=== PATIENT | female | born 1970 | race Caucasian/White ===

== ENCOUNTER → 2017-01-28 | Outpatient (CLI) | payer OTHER ==
--- NOTE | 2017-01-28 15:22 | RADIOLOGY REPORT (SQ) ---
EXAM DESCRIPTION: KNEE RIGHT 4 VIEWS COMPLETED DATE/TIME: 01/28/2017 3:09 pm REASON FOR STUDY: PAIN IN RIGHT KNEE M25.561 PAIN IN RIGHT KNEE COMPARISON: None. NUMBER OF VIEWS: Four views. TECHNIQUE: AP, lateral, and both oblique radiographic images acquired of the right knee. LIMITATIONS: None. FINDINGS: MINERALIZATION: Normal. BONES: No acute fracture or dislocation. No worrisome bone lesions. Mild osteophytic lipping is ident ified at the level of the medial compartment. There is minimal osteophytic lipping at the level of t he lateral compartment. JOINT: There is complete loss of the medial compartment with associated bony sclerosis. There is bubba ost complete loss of the lateral compartment. OTHER: No other significant finding. IMPRESSION: Degenerative changes as noted above TECHNICAL DOCUMENTATION: JOB ID: [id number] [employer]- All Rights Reserved
--- NOTE | 2017-01-28 16:46 | RADIOLOGY REPORT (SQ) ---
EXAM DESCRIPTION: KNEE LEFT 4 VIEWS COMPLETED DATE/TIME: 01/28/2017 3:09 pm REASON FOR STUDY: PAIN IN left KNEE M25.561 PAIN IN left KNEE COMPARISON: Right knee four views same date NUMBER OF VIEWS: Four views. TECHNIQUE: AP, lateral, and both oblique radiographic images acquired of the left knee. LIMITATIONS: None. FINDINGS: MINERALIZATION: Normal. BONES: No acute fracture or dislocation. No worrisome bone lesions. Mild bony spurring, anterior as pect left distal femur at the patellofemoral joint JOINT: High-grade joint space narrowing medial compartment. Moderate joint space narrowing, lateral compartment. Mild patellofemoral compartment joint space narrowing and bony spurring. Small suprapa tellar knee joint effusion. SOFT TISSUES: No soft tissue swelling. No radio-opaque foreign body. OTHER: No other significant finding. IMPRESSION: Diffuse osteoarthritis. No acute fracture. TECHNICAL DOCUMENTATION: JOB ID: [id number] [employer]- All Rights Reserved
== END ==
LOC: OD 14:52
PROVIDERS: ATTEND Physician Assistant
DX: M25.561 Pain in right knee (principal); M25.562 Pain in left knee; M17.0 Bilateral primary osteoarthritis of knee